=== PATIENT | female | born 1940 | race African-American/Black ===

== ENCOUNTER 2018-10-28 13:05 | Emergency (ER) | payer MEDICARE, MEDICAID ==
[~2018-10-28] VITALS: Ht 172.7 cm; Wt 86.0 kg
[~2018-10-28 13:05] MED LIST: ALBU18HF2 INH; AMLO5TAB88 PO; ASA5EC PO; ATOR20TA65 PO; BENZ1TAB7 PO; DIGO250T81 PO; FERR-63 PO; FLUT1DIS INH; GABA-531 PO; MELO-106 PO; MEMA28CA PO; PANT40VI6 PO; SOLI5TAB PO; TRAM50TA3 PO
[2018-10-28 13:59] VITALS: BP 141/70
== END 2018-10-28 17:54 | disposition left against medical advice (07) ==
LOC: ER 13:59
DX: Z53.21 Procedure and treatment not carried out due to patient leaving prior to being seen by health care provider (principal)